=== PATIENT | male | born 1945 | race Caucasian/White ===

== ENCOUNTER → 2018-09-18 | Outpatient (CLI) | payer OTHER | LOC: BMCIMAGING 07:16 | PROVIDERS: ATTEND Internal Medicine | DX: I70.0 Atherosclerosis of aorta (principal); I77.811 Abdominal aortic ectasia; E78.00 Pure hypercholesterolemia, unspecified; I10 Essential (primary) hypertension ==

== ENCOUNTER → 2018-12-20 | Outpatient (CLI) | payer OTHER | LOC: BMCIMAGING 15:03 | PROVIDERS: ATTEND Internal Medicine | DX: M19.041 Primary osteoarthritis, right hand (principal) ==